=== PATIENT | female | born 1955 | race American Indian/Alaskan Native ===

== ENCOUNTER 2016-10-25 16:01 | Emergency (ER) | payer BC, MEDICARE ==
[2016-10-25] MEDS ORDERED: CATAPRES PO ONE (21:40)
--- NOTE | 2016-10-25 21:40 | Emergency Department Report ---
Eye Injury/Foreign Body - HPI Duration: Today Eye Location: Bilateral Severity: Mild Tetanus Status: Up to Date Eye Symptoms: Eye Pain: No, Blurred Vision: Yes, Eye Redness: No, Grinding/ Hammering Metal: No, Used Eye Protection: No, Contact Lens Use: No, Recalls Injury: No, Photophobia: No Other History: DR; poor informant. denies pain in eye. wears glasses. baseline nearly blind. from [place]. no trauma to eye. ED Review of Systems ROS: Stated complaint: LEFT EYE PAIN Other details as noted in HPI Comment: All other systems reviewed and negative Constitutional: no symptoms reported, see HPI. denies: chills, diaphoresis, fever, malaise Eyes: as per HPI, eye pain (intermittent- not new), vision change (a/c. diabetic retinopathy. gradual). denies: eye discharge ENT: as per HPI. denies: ear pain, throat pain Respiratory: no symptoms reported. denies: cough, orthopnea, shortness of breath, SOB with exertion, SOB at rest, stridor Cardiovascular: as per HPI. denies: chest pain, palpitations, dyspnea on exertion, orthopnea Endocrine: no symptoms reported Gastrointestinal: as per HPI Genitourinary: as per HPI Musculoskeletal: as per HPI Skin: as per HPI. denies: rash, lesions Neurological: as per HPI, other (did not take bp meds today and can not tell me what they are). denies: headache, weakness, numbness, paresthesias, confusion, abnormal gait, vertigo Psychiatric: as per HPI Hematological/Lymphatic: as per HPI ED Past Medical Hx - Past Medical History Previous Medical History?: Yes Hx Hypertension: Yes Hx CVA: No Hx Heart Attack/AMI: Yes Hx Congestive Heart Failure: Yes Hx Diabetes: Yes Hx Deep Vein Thrombosis: No Hx Pulmonary Embolism: No Hx GERD: No Hx Liver Disease: No Hx Renal Disease: No Hx of Cancer: No Hx Sickle Cell Disease: No Hx Arthritis: Yes (hips and back) Hx Headaches / Migraines: No Hx Seizures: No Hx Kidney Stones: No Hx Psychiatric Treatment: No Hx Asthma: No Hx COPD: No Hx Tuberculosis: No Hx Dementia: No Hx HIV: No Additional medical history: Pneumonia, neuropathy, and hpld. diabetic retinopathy, cataracts, and poor vision bilateral eyes. - Surgical History Hx Open Heart Surgery: Yes (1-6-2017) - Social History Smoking Status: Former Smoker Substance Use Type: Alcohol, Prescribed Eye Injury Exam - Exam General: Vital signs noted. No distress. Alert and acting appropriately. ED Course Vital Signs 10/25/16 10/25/16 16:25 20:31 Temperature 98.1 F Pulse Rate 60 67 Respiratory 18 18 Rate Blood Pressure 184/87 Blood Pressure 215/101 [Left] O2 Sat by Pulse 100 100 Oximetry - Reevaluation(s) Reevaluation #1: 10/25/16 22:20 son called he could not give us med names bs noted discussed effect of dm on eye and explained to pt she needs [facility] here [place] Dr White will see her Thursday there is no acute vision change. this is chronic bp elevated. she did not take her meds today meds no insulin bp pills water pill 10/25/16 23:[address] White clonidine po w bp decreasing taking po and ambulatory Reevaluation #2: 10/25/16 23:24 son and pt educated on plan of care. Dr White will see pt on Thursday ED Medical Decision Making - Medical Decision Making no trauma to eye no acute change chronic condition ok to eval at [facility] on Thursday family educated bs noted bp treated will take meds as scheduled Critical care attestation.: If time is entered above; I have spent that time in minutes in the direct care of this critically ill patient, excluding procedure time. ED Disposition Clinical Impression: Diabetic retinopathy, Diabetes, Hypertension, Cataract Disposition: OP ADMIT IP TO THIS HOSP Is pt being admited?: No Does the pt Need Aspirin: No Condition: Stable Instructions: Diabetes Mellitus Type 2 in Adults (ED), Diabetic Retinopathy (ED ), Hypertension (ED) Additional Instructions: diabetic diet take meds as ordered follow up with MD on Thursday as instructed Referrals: PRIMARY CAREMD [Primary Care Provider] - 3-5 Days KELIN WHITE MD [Staff Physician] - 3-5 Days Time of Disposition: 23:17 Physical Exam - Physical Exam Vital Signs: Vital Signs 10/25/16 10/25/16 10/25/16 16:25 20:31 21:49 Temperature 98.1 F Pulse Rate 60 67 Respiratory 18 18 Rate Blood Pressure 184/87 215/101 Blood Pressure 215/101 [Left] O2 Sat by Pulse 100 100 Oximetry 10/25/16 22:22 Temperature 98 F Pulse Rate 70 Respiratory 18 Rate Blood Pressure Blood Pressure 171/69 [Left] O2 Sat by Pulse 98 Oximetry Physical Exam - Physical Exam Vital Signs: Vital Signs 10/25/16 10/25/16 10/25/16 16:25 20:31 21:49 Temperature 98.1 F Pulse Rate 60 67 Respiratory 18 18 Rate Blood Pressure 184/87 215/101 Blood Pressure 215/101 [Left] O2 Sat by Pulse 100 100 Oximetry 10/25/16 22:22 Temperature 98 F Pulse Rate 70 Respiratory 18 Rate Blood Pressure Blood Pressure 171/69 [Left] O2 Sat by Pulse 98 Oximetry ED General adult EXAM - General General appearance: alert, in no apparent distress Limitations: Physical Limitation, Other (limited vision) - Head Head exam: Positive: atraumatic - Eye Eye exam: normal appearance, EOMI Visual acuity (L) = 20/: 0 (known limited) Visual acuity (R) = 20/: 0 (known limited) IOP (L) in mmH IOP (R) in mmH IOP measured with: Tonopen Extraocular Movement: Normal - ENT ENT exam: Positive: normal exam, normal orophraynx, mucous membranes moist - Neck Neck exam: Positive: normal inspection - Respiratory Respiratory exam: Positive: normal lung sounds bilaterally - Cardiovascular Cardiovascular Exam: Positive: regular rate - GI/Abdominal GI/Abdominal exam: Positive: soft - Rectal Rectal exam: Positive: deferred - exam: Positive: deferred - Extremities Extremities exam: Positive: normal inspection - Back Back exam: normal inspection - Neurological Neurological exam: Positive: alert, altered, oriented X3, CN II-XII intact, normal gait, reflexes normal. Negative: abnormal gait, motor sensory deficit - Psychiatric Psychiatric exam: Positive: normal affect, normal mood. Negative: depressed, agitated, anxious, flat affect - Skin Skin exam: Positive: warm, dry, intact, normal color
[2016-10-25 22:23] VITALS: BP 171/69
== END 2016-10-25 23:43 | disposition admitted as inpatient to this hospital (09) ==
LOC: ED 16:01
DX: E11.319 Type 2 diabetes mellitus with unspecified diabetic retinopathy without macular edema (principal); I10 Essential (primary) hypertension; E11.36 Type 2 diabetes mellitus with diabetic cataract; I50.9 Heart failure, unspecified; I25.2 Old myocardial infarction; M19.90 Unspecified osteoarthritis, unspecified site; Z87.891 Personal history of nicotine dependence; Z88.0 Allergy status to penicillin; Z88.2 Allergy status to sulfonamides
CPT/HCPCS: 82962; 99283; 99284

== ENCOUNTER 2019-06-01 20:50 | Emergency (ER) | payer BC, OTHER ==
--- NOTE | 2019-06-01 21:35 | Emergency Department Report ---
Blank Doc - Documentation Documentation: 64-year-old female that presents with sob and missed dialysis x3 month. This initial assessment/diagnostic orders/clinical plan/treatment(s) is/are subject to change based on patient's health status, clinical progression and re- assessment by fellow clinical providers in the ED. Further treatment and workup at subsequent clinical providers discretion. Patient/guardians urged not to elope from the ED as their condition may be serious if not clinically assessed and managed. Initial orders include: 1- Patient sent to MAIN ED for further evaluation and treatment 2- EKG 3- CXR 4- labs
[2019-06-01 22:04] LABS: Basophils % (Auto) 0.5 % (0.0-1.8); Eosinophils # (Auto) 0.2 K/mm3 (0.0-0.4); Eosinophils % (Auto) 4.3 % (0.0-4.3); Hematocrit 23.5 % (30.3-42.9); Hemoglobin 7.7 gm/dl (10.1-14.3); Lymphocytes # (Auto) 0.8 K/mm3 (1.2-5.4); Lymphocytes % (Auto) 16.8 % (13.4-35.0); Mean Corpuscular HGB Conc 33 % (30-34); Mean Corpuscular Volume 90 fl (79-97); Monocytes # (Auto) 0.4 K/mm3 (0.0-0.8); Monocytes % (Auto) 7.9 % (0.0-7.3); Platelet Count 167 K/mm3 (140-440); Red Cell Distribution Width 14.8 % (13.2-15.2)
[2019-06-01 22:15] LABS: INR 0.97 (0.87-1.13)
[2019-06-01 22:16] LABS: Partial Thromboplastin Time 29.2 Sec. (24.2-36.6)
[2019-06-01 22:28] LABS: Albumin 3.9 g/dL (3.9-5)
--- NOTE | 2019-06-01 22:32 | Emergency Department Report ---
ED General Adult HPI - General Chief complaint: Dyspnea/Respdistress Stated complaint: NEED DIALYSIS NOT FEELING WELL Time Seen by Provider: 06/01/19 21:34 Source: patient, family Mode of arrival: Wheelchair Limitations: Other - History of Present Illness Initial comments: 64 y.o. female with history of hypertension, CHF, coronary artery disease status post CABG, diabetes and end-stage renal disease presents with the complaint of shortness of breath and lower extremity swelling. Patient states she has not had dialysis in the past 4 months. Patient states currently she only takes aspirin and herbal medications. Patient states that secondary to an issue at first and he is dialysis she hasn't had dialysis since January. Patient describes shortness of breath at rest as well as with exertional activity. Patient complains of nausea. Patient denies any chest pain or abdominal pain. Patient complains of generalized weakness without any focality. Patient states that she was told she had end-stage renal disease and was started on dialysis a year ago while at [place] [facility] after being released was set up to the [facility] she left that is [facility] went to another dialysis location and there was switched over for sending us. Severity scale (0 -10): 0 - Related Data Allergies Allergy/AdvReac Type Severity Reaction Status Date / Time Penicillins Allergy Hives Verified 10/25/16 16:24 Sulfa (Sulfonamide AdvReac Hives Verified 10/25/16 16:24 Antibiotics) ED Review of Systems ROS: Stated complaint: NEED DIALYSIS NOT FEELING WELL Other details as noted in HPI Constitutional: denies: chills, fever Eyes: denies: eye pain, eye discharge, vision change ENT: denies: ear pain, throat pain Respiratory: cough, SOB at rest Cardiovascular: denies: chest pain, palpitations Endocrine: no symptoms reported Gastrointestinal: denies: abdominal pain, nausea, diarrhea Genitourinary: denies: urgency, dysuria, discharge Musculoskeletal: denies: back pain, joint swelling, arthralgia Skin: denies: rash, lesions Neurological: weakness Psychiatric: denies: anxiety, depression Hematological/Lymphatic: denies: easy bleeding, easy bruising ED Past Medical Hx - Past Medical History Hx Hypertension: Yes Hx CVA: No Hx Heart Attack/AMI: Yes Hx Congestive Heart Failure: Yes Hx Diabetes: Yes Hx Deep Vein Thrombosis: No Hx Pulmonary Embolism: No Hx GERD: No Hx Liver Disease: No Hx Renal Disease: No Hx Sickle Cell Disease: No Hx Arthritis: Yes (hips and back) Hx Headaches / Migraines: No Hx Seizures: No Hx Kidney Stones: No Hx Psychiatric Treatment: No Hx Asthma: No Hx COPD: No Hx Tuberculosis: No Hx Dementia: No Hx HIV: No Additional medical history: Pneumonia, neuropathy, and hpld. diabetic retinopathy, cataracts, and poor vision bilateral eyes. - Surgical History Hx Open Heart Surgery: Yes (05-23-2016) - Social History Smoking Status: Never Smoker Substance Use Type: None ED Physical Exam - General Limitations: Other General appearance: alert, other (minimal distress) - Head Head exam: Present: atraumatic, normocephalic - Eye Eye exam: Present: normal appearance - ENT ENT exam: Present: mucous membranes moist - Neck Neck exam: Present: normal inspection - Respiratory Respiratory exam: Present: other (coarse breath sounds bilaterally in bases of lungs). Absent: respiratory distress - Cardiovascular Cardiovascular Exam: Present: regular rate, normal rhythm, systolic murmur, other (1+ edema noted in lower extremities bilaterally). Absent: diastolic murmur, rubs, gallop - GI/Abdominal GI/Abdominal exam: Present: soft, normal bowel sounds - Extremities Exam Extremities exam: Present: normal inspection - Back Exam Back exam: Present: normal inspection - Neurological Exam Neurological exam: Present: alert, oriented X3 - Psychiatric Psychiatric exam: Present: normal affect, normal mood - Skin Skin exam: Present: warm, dry, intact, normal color. Absent: rash ED Course Vital Signs 06/01/19 06/01/19 06/01/19 21:34 22:17 22:34 Temperature 99.1 F 98.7 F 98.5 F Pulse Rate 70 67 Respiratory 18 14 Rate Blood Pressure 140/80 Blood Pressure 155/88 162/90 [Left] O2 Sat by Pulse 100 96 Oximetry ED Medical Decision Making - Lab Data Result diagrams: 06/01/19 21:41 06/01/19 21:41 - EKG Data EKG shows normal: sinus rhythm Rate: normal - EKG Data When compared to previous EKG there are: no significant change Interpretation: nonspecific ST-T wave lavelle, other (no evidence of ST elevation) - Medical Decision Making Patient case discussed with Dr. Camarena with nephrology who states that patient will be seen in consultation. Patient will likely need a new vascular access. Patient to be admitted to the hospitalist service for continued management and treatment. - Differential Diagnosis Hyperkalemia; CHF; NSTEMI; STEMI Critical care attestation.: If time is entered above; I have spent that time in minutes in the direct care of this critically ill patient, excluding procedure time. ED Disposition Clinical Impression: ESRD (end stage renal disease), Hyperkalemia, NSTEMI (non-ST elevated myocardial infarction) Disposition: 09 OP ADMIT IP TO THIS HOSP Is pt being admited?: Yes Does the pt Need Aspirin: No Condition: Stable Time of Disposition: 23:19
[2019-06-01 22:35] VITALS: BP 162/90
[2019-06-01] MEDS ORDERED: SODIUM POLYSTYRENE 15 GM/60 ML ORAL LIQD PO ONE ×2 (22:49→23:35)
[2019-06-01] MEDS ORDERED: ASPIRIN EC 325 MG TAB PO ONE (22:50)
[2019-06-01 22:54] LABS: Chol/HDL Ratio 3.76 %
--- NOTE | 2019-06-01 22:57 | XRay Report ---
CHEST 2 VIEWS INDICATION / CLINICAL INFORMATION: Chest Pain. Shortness of breath, bilateral leg swelling, generalized rash and weakness. COMPARISON: None available. FINDINGS: SUPPORT DEVICES: There is a right jugular permacath with the tip overlying the cavoatrial junction. HEART / MEDIASTINUM: Median sternotomy. Normal heart size and pulmonary vasculature. The aorta is nor mal in caliber. LUNGS / PLEURA: No significant pulmonary or pleural abnormality. No pneumothorax. ADDITIONAL FINDINGS: No significant additional findings. IMPRESSION: No acute abnormality. Signer Name: Pierre Huang MD Signed: 06/01/2019 10:53 PM Workstation Name: [id number]
--- NOTE | 2019-06-01 23:24 | History and Physical Report ---
History of Present Illness History of present illness: 69-year-old woman with a history of hypertension, diabetes, end-stage renal on dialysis, coronary artery disease, CHF comes emergency room with complaints of shortness of breath that worsened today. Patient has not had dialysis since January, states she had any issue with dialysis clinic and she was discharged from the clinic. Patient is being admitted for dialysis, hyperkalemia Review Of Systems: Constitutional: no weight loss, chills, fever Ears, eyes, nose, mouth and throat: no nasal congestion, no nasal discharge, no sinus pressure, blurry vision, diplopia Neck: No neck pain or rigidity. Cardiovascular: No palpitations, chest pain Respiratory: NO cough, +shortness of breath Gastrointestinal: No hematochezia, abdominal pain Genitourinary : no dysuria, frequency , hematuria Musculoskeletal: no muscle ache , joint pain Integumentary: no rash, no pruritis Neurological: no parathesias, focal weakness Endocrine: no cold or heat intolerance, no polyuria or polydipsia Hematologic/Lymphatic: no easy bruising, no easy bleeding, no gland swelling Allergic/Immunologic: no urticaria, no angioedema. PAST MEDICAL HISTORY: hypertension, diabetes, end-stage renal on dialysis, coronary artery disease, CHF PAST SURGICAL HISTORY: CABG SOCIAL HISTORY: NO alcohol, tobacco no drugs FAMILY HISTORY: hypertension Medications and Allergies Allergies Allergy/AdvReac Type Severity Reaction Status Date / Time Penicillins Allergy Hives Verified 10/25/16 16:24 Sulfa (Sulfonamide AdvReac Hives Verified 10/25/16 16:24 Antibiotics) Exam - Physical Exam Narrative exam: Gen. appearance: Patient lying in bed, no apparent distress HEENT: Normocephalic, atraumatic, pupils equally round and reactive to light, extraocular movement intact, and no sclericterus,. No JVD or thyromegaly or nodule,neck supple, no carotid bruit ,mucous membranes moist, no exudate or erythema Heart: S1, S2, regular rate and rhythm Lungs: Clear to auscultation bilaterally, breathing comfortable Abdomen: Positive bowel sounds, nontender, nondistended, no organomegaly Extremity: + edema, no cyanosis, clubbing Skin: No rash, nodules, warm, dry Neuro: Oriented 3, cranial nerves II-12 intact, speech is fluent, motor and sensory intact - Constitutional Vitals: Temp Pulse Resp BP Pulse Ox 98.5 F 67 14 162/90 96 06/01/19 22:34 06/01/19 22:17 06/01/19 22:17 06/01/19 22:34 06/01/19 22:17 Results - Labs CBC & Chem 7: 06/01/19 21:41 06/01/19 21:41 Labs: Abnormal lab results 06/01/19 06/01/19 Range/Units 21:41 21:41 RBC 2.60 L (3.65-5.03) M/mm3 Hgb 7.7 L (10.1-14.3) gm/dl Hct 23.5 L (30.3-42.9) % [place] % (Auto) 7.9 H (0.0-7.3) % Lymph # 0.8 L (1.2-5.4) K/mm3 Seg Neutrophils % 70.5 H (40.0-70.0) % Potassium 5.4 H (3.6-5.0) mmol/L Chloride 108.2 H (98-107) mmol/L Carbon Dioxide 15 L (22-30) mmol/L BUN 60 H (7-17) mg/dL Creatinine 7.7 H (0.7-1.2) mg/dL Glucose 129 H (65-100) mg/dL Troponin T 0.318 H* (0.00-0.029) ng/mL Triglycerides 182 H (2-149) mg/dL - Imaging and Cardiology EKG: image reviewed Chest x-ray: report reviewed Assessment and Plan Assessment Fluid overload hyperkalemia/ secondary to missed dialysis Status post Kayexalate, monitor potassium level renal was consulted see the patient Consult case management for dialysis placement abnormal cardiac enzymes Check cardiac enzymes, echo, consult cardiology Diabetes Check fingersticks and start sliding scale Hypertension Start IV hydralazine as needed for blood pressure control Coronary artery disease, stable Legally blind DVT prophylaxis
[2019-06-01] MEDS ORDERED: diphenhydrAMINE 25 MG/10 ML ORAL LIQUID PO ONE (23:28)
[2019-06-01] MEDS ORDERED: hydrALAZINE 20 MG/1 ML INJ IV PRN (23:53)
[2019-06-01] MEDS ORDERED: ONDANSETRON 4 MG/2 ML INJ IV PRN (23:54)
[2019-06-01] MEDS ORDERED: ACETAMINOPHEN 325 MG TAB PO PRN (23:54)
[2019-06-02] MEDS ORDERED: diphenhydrAMINE 25 MG CAP PO ONE (00:06)
[2019-06-02] MEDS ORDERED: ASPIRIN 325 MG TAB ONE (00:06)
[2019-06-02] MEDS ORDERED: ASPIRIN EC 325 MG TAB PO ONE (00:09)
[2019-06-02] MEDS ORDERED: SODIUM POLYSTYRENE 15 GM/60 ML ORAL LIQD ONE (00:23)
--- NOTE | 2019-06-02 06:54 | Event Note ---
Patient refused to let the staff place IV access Stated that she did not need IV access to be admitted She therefore signed out AMA, risk and benefits explained to her Verbalized understand
== END 2019-06-02 03:46 | disposition admitted as inpatient to this hospital (09) ==
LOC: ED 20:50 → 4A 23:20 → UNDOADMOB 23:20 → 4A 06-02 00:22 → ED 06-02 03:46
DX: I12.0 Hypertensive chronic kidney disease with stage 5 chronic kidney disease or end stage renal disease (principal); E11.22 Type 2 diabetes mellitus with diabetic chronic kidney disease; N18.6 End stage renal disease; E87.5 Hyperkalemia; I21.4 Non-ST elevation (NSTEMI) myocardial infarction; Z99.2 Dependence on renal dialysis; Z88.0 Allergy status to penicillin; Z88.2 Allergy status to sulfonamides
CPT/HCPCS: 36415; 71046; 80053; 80061; 84484; 85025; 85610; 85730; 93005; 93010